=== PATIENT | female | born 1985 | race Two or more races ===

== ENCOUNTER 2019-01-09 23:33 | Emergency (ER) | payer MEDICAID ==
[~2019-01-09] VITALS: Ht 167.6 cm; Wt 108.0 kg
[2019-01-10 00:27] VITALS: BP 126/84
[2019-01-10] MEDS ORDERED: IBUPROFEN 600MG TABLET PO ONE (00:45)
== END 2019-01-10 02:39 | disposition home or self-care (01) ==
LOC: ER 23:33
DX: M25.572 Pain in left ankle and joints of left foot (principal); E11.9 Type 2 diabetes mellitus without complications; W10.8XXA Fall (on) (from) other stairs and steps, initial encounter; Y93.01 Activity, walking, marching and hiking; Y92.9 Unspecified place or not applicable
CPT/HCPCS: 29515; 73610; 81025; 99283

== ENCOUNTER 2019-08-07 23:39 | Emergency (ER) | payer MEDICAID ==
[~2019-08-07] VITALS: Ht 165.1 cm; Wt 116.0 kg
[2019-08-08 01:03] LABS: CLARITY URINE CLOUDY (CLEAR); COLOR URINE YELLOW (YELLOW); KETONES URINE TRACE (NEGATIVE); LEUKOCYTE ESTERASE URINE 2+ (NEGATIVE); NITRITE URINE NEGATIVE (NEGATIVE); OCCULT BLOOD URINE 2+ (NEGATIVE); PH URINE 5.5 (4.5-8.0); PROTEIN URINE TRACE (NEGATIVE); SPECIFIC GRAVITY URINE 1.035 (1.005-1.030); UROBILINOGEN URINE 0.2 E.U./dL (0.2-1.0)
[2019-08-08 02:20] VITALS: BP 133/87
== END 2019-08-08 02:20 | disposition home or self-care (01) ==
LOC: ER 23:39
DX: N39.0 Urinary tract infection, site not specified (principal); B37.3 Candidiasis of vulva and vagina; L25.9 Unspecified contact dermatitis, unspecified cause; E11.9 Type 2 diabetes mellitus without complications
CPT/HCPCS: 81003; 99283

== ENCOUNTER 2022-06-02 11:33 | Emergency (ER) | payer MEDICAID ==
[~2022-06-02] VITALS: Ht 165.1 cm; Wt 118.0 kg
[2022-06-02 12:07] LABS: BASOPHILS % 0.6 % (0.0-2.0); EOSINOPHILS % 0.8 % (0.0-5.0); LYMPHOCYTES % 31.7 % (20.0-50.0); MEAN CORPUSCULAR HEMOGLOBIN 31.1 pg (28.0-32.0); MEAN CORPUSCULAR VOLUME 91.2 fL (81.0-99.0); MEAN PLATELET VOLUME 9.5 fl (7.4-10.4); MONOCYTES % 4.8 % (2.0-8.0); NEUTROPHILS % 62.1 % (40.0-76.0); PLATELET 279 x1000/uL (130-400); RED BLOOD CELL COUNT 4.83 mill/uL (4.2-5.4); RED CELL DISTRIBUTION WIDTH 13.3 % (11.6-14.6)
[2022-06-02 12:09] LABS: CHLORIDE 103 mEq/L (98-107)
[2022-06-02] MEDS ORDERED: SODIUM CHLORIDE 0.9% 1,000 ML IV ONE (12:30)
[2022-06-02 13:22] LABS: CLARITY URINE CLEAR (CLEAR); COLOR URINE YELLOW (YELLOW); KETONES URINE NEGATIVE (NEGATIVE); LEUKOCYTE ESTERASE URINE NEGATIVE (NEGATIVE); NITRITE URINE NEGATIVE (NEGATIVE); OCCULT BLOOD URINE NEGATIVE (NEGATIVE); PH URINE 5.5 (4.5-8.0); PROTEIN URINE NEGATIVE (NEGATIVE); SPECIFIC GRAVITY URINE 1.039 (1.005-1.030); UROBILINOGEN URINE 0.2 E.U./dL (0.2-1.0)
[2022-06-02 13:27] LABS: UCG SCREEN NEGATIVE
[2022-06-02] MEDS ORDERED: KETOROLAC 30MG/ML VIAL IV ONE (14:30)
[2022-06-02] MEDS ORDERED: INSULIN REGULAR (HUMULIN R) 300UNITS/3ML VIAL IV ONE (14:30)
[2022-06-02 16:01] LABS: BG BASE EXCESS -3.2 mmol/L (-2.0-2.0); BG DEOXYHEMOGLOBIN 2.3 % (0.0-5.0); BG FRACTION INSPIRED OXYGEN 21; BG HCO3 ACT 20.8 mmol/L (22.0-26.0); BG METHEMOGLOBIN 0.3 % (0.0-1.5); BG OXYGEN SATURATION 97.7 % (92.0-98.5); BG OXYHEMOGLOBIN 96.4 % (94.0-97.0); BG PCO2 34.2 mmHg (35.0-45.0); BG PH 7.401 (7.350-7.450); BG PO2 96.1 mmHg (75.0-100.0); BG SAMPLE SITE LEFT RADIAL; BG TOTAL HEMOGLOBIN 14.1 g/dL (12.0-18.0); BG VENT MODE ROOM AIR
[2022-06-02] MEDS ORDERED: TOPUD MT (16:53)
[2022-06-02 17:51] VITALS: BP 127/94
== END 2022-06-02 17:51 | disposition home or self-care (01) ==
LOC: ER 11:33
DX: R10.9 Unspecified abdominal pain (principal); E11.9 Type 2 diabetes mellitus without complications
CPT/HCPCS: 36415; 36600; 74176; 80053; 81003; 81025; 82010; 82375; 82805; 83690; 85025; 96361; 96374; 96375; 99285; J1815; J1885; Z7610

== ENCOUNTER 2023-06-08 21:56 | Emergency (ER) | payer MEDICAID ==
[~2023-06-08] VITALS: Ht 170.2 cm; Wt 100.0 kg
[~2023-06-08 21:56] MED LIST: TOPUD MT
[2023-06-08 21:58] VITALS: O2SAT 98
[2023-06-08] MEDS ORDERED: DOCU-138 MT (23:37)
[2023-06-08] MEDS: ACETAMINOPHEN 325MG TABLET PO STA (23:51)
[2023-06-09 00:14] LABS: BASOPHILS % 0.1 % (0.0-2.0); HEMATOCRIT. 38.5 % (36.0-48.0); HEMOGLOBIN. 13.2 g/dL (12.0-16.0); LYMPHOCYTES % 7.8 % (20.0-50.0); MEAN CORPUSCULAR HEMOGLOBIN 32.4 pg (28.0-32.0); MEAN CORPUSCULAR HGB CONC 34.3 g/dL (31.0-37.0); MEAN CORPUSCULAR VOLUME 94.5 fL (81.0-99.0); MEAN PLATELET VOLUME 8.8 fl (7.4-10.4); MONOCYTES % 3.4 % (2.0-8.0); NEUTROPHILS % 88.7 % (40.0-76.0); PLATELET 268 x1000/uL (130-400); RED BLOOD CELL COUNT 4.07 mill/uL (4.2-5.4); RED CELL DISTRIBUTION WIDTH 13.9 % (11.6-14.6); WHITE BLOOD COUNT 19.2 x1000/uL (4.5-11.0)
[2023-06-09 00:27] LABS: HCG SCREEN POSITIVE
[2023-06-09 00:30] LABS: ALANINE AMINOTRANSFERASE 16 IU/L (10-49); ALBUMIN 4.7 g/dL (3.2-4.8); ASPARTATE AMINOTRANSFERASE 15 IU/L (<34); BILIRUBIN TOTAL 0.8 mg/dL (0.1-1.0); CALCIUM 9.1 mg/dL (8.7-10.4); CARBON DIOXIDE 19 mEq/L (21-32); CHLORIDE 104 mEq/L (98-107); CREATININE 0.5 mg/dL (0.6-1.0); GLUCOSE 150 mg/dL (70-105); POTASSIUM 3.9 mEq/L (3.5-5.1); PROTEIN TOTAL 8.1 g/dL (6.0-8.3); SODIUM 131 mEq/L (136-145); UREA NITROGEN BLOOD 7 mg/dL (9-23)
[2023-06-09 06:10] VITALS: BP 130/78; PULSE 97; RESP 16; TEMP 98.3
[2023-06-09] MEDS ORDERED: TOPUD MT (06:25)
== END 2023-06-09 06:42 | disposition home or self-care (01) ==
LOC: ER 21:56
DX: O99.612 Diseases of the digestive system complicating pregnancy, second trimester (principal); E11.9 Type 2 diabetes mellitus without complications; Z3A.18 18 weeks gestation of pregnancy
CPT/HCPCS: 36415; 76700; 80053; 84703; 85025; 99284